=== PATIENT | female | born 1960 | race Caucasian/White ===

== ENCOUNTER 2022-06-01 20:35 | Observation (INO) | payer OTHER ==
[2022-06-01 21:32] LABS: CHLORIDE,CL 106 mmol/L (98-107); SODIUM,NA 144 mmol/L (136-145)
[2022-06-01 21:33] LABS: PCO2 ARTERIAL,POC 38 mmHg (35-48)
[2022-06-01 21:33] LABS: ANION GAP 13.8 mmol/L (5-15); ESTIMATED GFR 101 mL/min (>=60)
[2022-06-01] MEDS ORDERED: Acetaminophen 325 MG Tab PO PRN (22:28)
[2022-06-02 07:11] LABS: PCO2 ARTERIAL,POC 46 mmHg (35-48)
[2022-06-02] MEDS ORDERED: Nicotine 14 MG/24 Hr Patch TRDERM SCH (09:00)
[2022-06-02] MEDS ORDERED: Albuterol HFA 18 Gm Inhaler INH PRN (09:58)
[2022-06-02] MEDS ORDERED: Ibuprofen 200 MG Tab PO PRN (09:58)
[2022-06-02] MEDS ORDERED: Levothyroxine 125 MCG Tab PO SCH (10:15)
[2022-06-02] MEDS: Albuterol/Ipratropium 3.0-0.5 MG/3 ML Neb Soln INH SCH ×2 (13:08→13:16)
== END 2022-06-02 14:10 | disposition home or self-care (01) ==
LOC: VM.ED 20:35 → VM.MS 21:50
PROVIDERS: ADMIT Physician Assistant; ATTEND Physician Assistant
DX: R09.02 Hypoxemia (principal); F17.210 Nicotine dependence, cigarettes, uncomplicated; Z79.890 Hormone replacement therapy; Z79.899 Other long term (current) drug therapy
CPT/HCPCS: 36415; 36600; 70450; 80053; 82803; 83605; 85025; 85610; 93005; 93010; 94640; 94760; 99223; 99239; 99285; A9270-GY; G0378; J7620-GY